=== PATIENT | female | born 1965 | race Caucasian/White ===

== ENCOUNTER → 2016-05-03 | Outpatient (CLI) | payer OTHER ==
[~2016-05-03] MED LIST: OMEP20TA7 PO
[2016-05-03 09:00] LABS: BASOPHILS % (AUTO) 1 % (0-10); EOSINOPHILS # (AUTO) 0.1 10^3/uL (0.0-0.3); EOSINOPHILS % (AUTO) 2 % (0-10); LYMPHOCYTES # (AUTO) 1.8 X 10^3 (1.0-4.0); LYMPHOCYTES % (AUTO) 44 % (12-44); MEAN CORPUSCULAR HEMOGLOBIN 30 PG (25-34); MEAN CORPUSCULAR HGB CONC 33 G/DL (32-36); MEAN CORPUSCULAR VOLUME 91 FL (80-99); MONOCYTES # (AUTO) 0.3 X 10^3 (0.0-1.0); MONOCYTES % (AUTO) 7 % (0-12); NEUTROPHILS # (AUTO) 1.9 X 10^3 (1.8-7.8); NEUTROPHILS % (AUTO) 47 % (42-75); PLATELET COUNT 249 10^3/uL (130-400); RED BLOOD COUNT 4.22 10^6/uL (4.35-5.85); RED CELL DISTRIBUTION WIDTH 12.9 % (10.0-14.5)
[2016-05-03 09:17] LABS: ALANINE AMINOTRANSFERASE 19 U/L (0-55); ALBUMIN 4.3 G/DL (3.2-4.5); ANION GAP 8 MMOL/L (5-14); ASPARTATE AMINO TRANSFERASE 20 U/L (5-34); BILIRUBIN,TOTAL 0.6 MG/DL (0.1-1.0); BLOOD UREA NITROGEN 10 MG/DL (7-18); BUN/CREATININE RATIO 13; CALCIUM 9.8 MG/DL (8.5-10.1); CARBON DIOXIDE 24 MMOL/L (21-32); CHLORIDE 110 MMOL/L (98-107); CHOLESTEROL 202 MG/DL (< 200); DIRECT LDL 119 MG/DL (1-129); GFR ESTIMATED > 60; GLUCOSE 93 MG/DL (70-105); POTASSIUM 4.2 MMOL/L (3.6-5.0); SODIUM 142 MMOL/L (135-145); TOTAL PROTEIN 7.1 G/DL (6.4-8.2); TRIGLYCERIDES 48 MG/DL (<150); VLDL CHOLESTEROL 10 MG/DL (5-40)
== END ==
LOC: LAB 08:30
PROVIDERS: ATTEND Obstetrics & Gynecology
DX: Z00.00 Encounter for general adult medical examination without abnormal findings (principal); Z13.220 Encounter for screening for lipoid disorders; Z13.1 Encounter for screening for diabetes mellitus
CPT/HCPCS: 36415; 80053; 80061; 83036; 84443; 85025

== ENCOUNTER → 2016-05-14 | Outpatient (CLI) | payer OTHER ==
--- NOTE | 2016-05-14 20:55 | Diagnostic Imaging Report ---
Bilateral diagnostic mammogram. INDICATION: Right breast pain. The current study was also evaluated with a Computer Aided Detection (CAD) system. Comparison exam from 08/02/14 is reviewed. FINDINGS: The breasts are composed of scattered fibroglandular densities slightly more dense in the central aspect bilaterally. There is overall left breast density compared to prior exam. No suspicious mass or calcification seen. Occasional punctate calcifications noted. IMPRESSION: No mammographic evidence of malignancy. Ultrasound evaluation pending. ACR BI-RADS Category 0: Incomplete. (Needs additional imaging evaluation). Dictated by: Dictated on workstation # [id number]
--- NOTE | 2016-05-14 21:49 | Diagnostic Imaging Report ---
EXAM: Right breast ultrasound. INDICATION: Right breast pain in the upper outer region. TECHNIQUE: All four quadrants and the retroareolar region were examined on this study. FINDINGS: Unremarkable breast parenchyma is seen with no focal lesion. IMPRESSION: Negative study. Clinical followup of the area of pain is recommended. Bi-RADS category 1. ACR BI-RADS Category 1: Negative. Result letter will be mailed to the patient. Note: At least 10% of breast cancer is not imaged by mammography. Dictated by: Dictated on workstation # [id number]
== END ==
LOC: EDUNIT# 04-30 16:06 → RAD 07:24
PROVIDERS: ATTEND Obstetrics & Gynecology
DX: N64.89 Other specified disorders of breast (principal)
CPT/HCPCS: 76641; 77066

== ENCOUNTER 2016-07-04 05:38 | Outpatient (CLI) | payer OTHER ==
[~2016-07-04] VITALS: Ht 168.9 cm; Wt 74.8 kg
[2016-07-04] MEDS ORDERED: OMEP20TA7 PO (15:08)
== END 2016-07-04 15:13 ==
LOC: PREOP 05:38
PROVIDERS: ATTEND Surgery
DX: Z01.818 Encounter for other preprocedural examination (principal); Z12.11 Encounter for screening for malignant neoplasm of colon; R13.10 Dysphagia, unspecified

== ENCOUNTER 2016-07-09 07:49 | Day surgery (SDC) | payer OTHER ==
[~2016-07-09] VITALS: Ht 168.9 cm; Wt 74.8 kg
[2016-07-09] MEDS ORDERED: NS IV 1000 ML 1,000 ML IV STA (08:08)
[2016-07-09 08:30] VITALS: BP 127/82
[2016-07-09] MEDS ORDERED: HURRICAINE EXT TUBE (BENZOCAINE) ONE (08:37)
[2016-07-09] MEDS ORDERED: MIDAZOLAM 2 MG/2 ML (VERSED) VIAL ONE (08:48)
[2016-07-09] MEDS ORDERED: proPOfol 200 MG/20 ML (DIPRIVAN) VIAL IV ONE (08:48)
--- NOTE | 2016-07-09 08:51 | Progress Note-Pre Operative ---
Pre-Operative Progress Note H&P Reviewed The H&P was reviewed, patient examined and no changes noted. Date H&P Reviewed: Jul 09, 2016 Time H&P Reviewed: 08:50 Pre-Operative Diagnosis: dysphagia, gerd, screening colonoscopy KEYSHAWN LINDER DO Jul 09, 2016 8:50 am
[2016-07-09] MEDS ORDERED: HURRICAINE EXT TUBE (BENZOCAINE) XX ONE (09:30)
--- NOTE | 2016-07-09 09:31 | Progress Note-Post Operative ---
Post-Operative Progess Note Surgeon (s)/Television Production Technician (s) Surgeon KEYSHAWN LINDER DO Television Production Technician: none Pre-Operative Diagnosis dysphagia, gerd, screening colonoscopy, family history colon cancer Post-Operative Diagnosis hiatal hernia, normal colon Post-Op Procedure Note Date of Procedure: Jul 09, 2016 Name of Procedure Performed: egd and colonoscopy Description of the Procedure: egd and colonoscopy Findings of the Procedure hiatal hernia normal colon Anesthesia Type per mda Estimated blood loss (mL): none Specimen(s) collected/removed none KEYSHAWN LINDER DO Jul 09, 2016 9:31 am
[2016-07-09 09:40] VITALS: BP 114/87
--- NOTE | 2016-07-09 09:41 | Discharge Inst-Simple/Standard ---
Discharge Inst-Standard Patient Instructions/Follow Up Plan of Care/Instructions/FU: F/u on as needed basis. Repeat colonoscopy 5 years unless problem before than and then be re-evaluated at that time. Activity as Tolerated: Yes Discharge Diet: Regular Diet KEYSHAWN LINDER DO Jul 09, 2016 9:41 am
[2016-07-09 09:49] VITALS: BP 127/82
[2016-07-09 10:00] VITALS: BP 125/83
[2016-07-09 10:05] VITALS: BP 125/83
--- NOTE | 2016-07-09 10:46 | OPERATIVE REPORT ---
DATE OF SERVICE: 07/09/2016 PREOPERATIVE DIAGNOSIS: Dysphagia, gastroesophageal reflux disease, screening colonoscopy, family history of colon cancer. POSTOPERATIVE DIAGNOSIS: Hiatal hernia, normal colon. PROCEDURE: Esophagogastroduodenoscopy and colonoscopy. SURGEON: KEYSHAWN LINDER DO ANESTHESIA: Per MDA. ESTIMATED BLOOD LOSS: None. COMPLICATIONS: None. INDICATION: The patient is a 51-year-old female with some dysphagia at times. She has reflux. She has family history of colon cancer. She also understands risks and benefits of procedure and wished to proceed with the procedure. Consent was signed in the chart. PROCEDURE: The patient was taken to the endoscopy suite and placed in left lateral recumbent position. Timeout was performed. Scope was inserted into the mouth, down the esophagus, stomach and into the duodenum without difficulty. There were no polyps, masses or ulcerations within the duodenum. The scope was then slowly retracted back into the stomach where it was further insufflated. There were no erythematous changes. A small polyp benign in appearance was present. There were no masses or ulcerations. Scope was retroflexed noting a small to moderate sized hiatal hernia. No other pathology noted. The scope was returned to its normal position, slowly withdrawn back into esophagus which had no erythematous changes. No polyps, masses or ulcerations. Widely patent. Scope was then continuously retracted back until completely removed. Digital rectal exam was then performed. There were no palpable polyps, masses or ulcerations. Scope was then inserted into the rectum and advanced all the way to the cecum with minimal difficulty. Prep was adequate. Scope was then slowly retracted back. There were no polyps, masses or ulcerations in the cecum, ascending, transverse, descending and sigmoid colon. Once in the rectum, scope was also retroflexed noting no other pathology. Scope was returned to its normal position and slowly withdrawn until completely removed. The patient tolerated the procedure well without any complications. She was taken to the recovery room in stable condition. RECOMMENDATIONS: The patient will continue on current medications for her reflux with omeprazole. She will need a repeat colonoscopy in 5 years due to family history of colon cancer. If she has any problems prior to that, she should be reevaluated at that time. Job ID: [id number] DocumentID: [id number] Dictated Date: 07/09/2016 09:33:40 Glass Blower Helper Date: 07/09/2016 10:45:20 Dictated By: KEYSHAWN LINDER DO
== END 2016-07-09 10:10 | disposition home or self-care (01) ==
LOC: ENDO 07:49
PROVIDERS: ATTEND Surgery
DX: Z12.11 Encounter for screening for malignant neoplasm of colon (principal); Z80.0 Family history of malignant neoplasm of digestive organs; K21.9 Gastro-esophageal reflux disease without esophagitis; K44.9 Diaphragmatic hernia without obstruction or gangrene; K31.7 Polyp of stomach and duodenum

== ENCOUNTER → 2017-10-17 | Outpatient (CLI) | payer OTHER ==
[2017-10-17 10:08] LABS: BASOPHILS % (AUTO) 1 % (0-10); EOSINOPHILS # (AUTO) 0.1 10^3/uL (0.0-0.3); EOSINOPHILS % (AUTO) 2 % (0-10); HEMATOCRIT 38 % (35-52); HEMOGLOBIN 12.8 G/DL (11.5-16.0); LYMPHOCYTES # (AUTO) 1.7 X 10^3 (1.0-4.0); LYMPHOCYTES % (AUTO) 45 % (12-44); MEAN CORPUSCULAR HEMOGLOBIN 31 PG (25-34); MEAN CORPUSCULAR HGB CONC 34 G/DL (32-36); MEAN CORPUSCULAR VOLUME 92 FL (80-99); MEAN PLATELET VOLUME 9.8 FL (7.4-10.4); MONOCYTES # (AUTO) 0.3 X 10^3 (0.0-1.0); MONOCYTES % (AUTO) 8 % (0-12); NEUTROPHILS # (AUTO) 1.7 X 10^3 (1.8-7.8); NEUTROPHILS % (AUTO) 45 % (42-75); PLATELET COUNT 242 10^3/uL (130-400); RED CELL DISTRIBUTION WIDTH 12.1 % (10.0-14.5); WHITE BLOOD COUNT 3.7 10^3/uL (4.3-11.0)
[2017-10-17 10:29] LABS: ALANINE AMINOTRANSFERASE 25 U/L (0-55); ALBUMIN 4.4 GM/DL (3.2-4.5); ALKALINE PHOSPHATASE 70 U/L (40-136); BILIRUBIN,TOTAL 0.6 MG/DL (0.1-1.0); BUN/CREATININE RATIO 14; CARBON DIOXIDE 24 MMOL/L (21-32); CHLORIDE 110 MMOL/L (98-107); CHOLESTEROL 199 MG/DL (< 200); CREATININE SERUM 0.79 MG/DL (0.60-1.30); GFR ESTIMATED > 60; GLUCOSE 96 MG/DL (70-105); HDL CHOLESTEROL 61 MG/DL (40-60); SODIUM 141 MMOL/L (135-145); TOTAL PROTEIN 7.2 GM/DL (6.4-8.2); TRIGLYCERIDES 44 MG/DL (<150); VLDL CHOLESTEROL 9 MG/DL (5-40)
--- NOTE | 2017-10-17 11:03 | Diagnostic Imaging Report ---
Indication: Routine screening. Comparison is made with prior mammogram from 05/14/2016 and 08/02/2014. 2-D and 3-D bilateral screening mammography was performed with CAD. Scattered fibroglandular densities are identified bilaterally. There is a small nodular density in the medial aspect of the right breast at posterior depth only seen on the CC view. No definite correlate on the MLO view is identified. This may be slightly inferior based on the tomographic views. Left breast is unremarkable. No suspicious calcifications are seen. The axillae are unremarkable. Impression: BI-RADS 0 Right breast density. Additional views including spot compression and rolled CC views are recommended for further evaluation. ACR BI-RADS Category 0: Incomplete. (Needs additional imaging evaluation). Result letter will be mailed to the patient. Note: At least 10% of breast cancer is not imaged by mammography. Dictated by: Dictated on workstation # [id number]
== END ==
LOC: RAD 09:43
PROVIDERS: ATTEND Obstetrics & Gynecology
DX: Z12.31 Encounter for screening mammogram for malignant neoplasm of breast (principal)
CPT/HCPCS: 36415; 77067; 80053; 80061; 83036; 84443; 85025

== ENCOUNTER → 2017-10-22 | Outpatient (CLI) | payer OTHER ==
--- NOTE | 2017-10-22 13:58 | Diagnostic Imaging Report ---
Indication: Right breast density. Patient presents for additional views. Correlation is made with recent screening study from 10/17/2017. Unilateral right 2-D and 3-D diagnostic mammography was performed. There is a residual density in the medial right breast posterior depth approximately 8 cm from the nipple. This has circumscribed margins, may represent a small cyst or lymph node. No other suspicious abnormality is seen. Impression: Right breast density medial aspect at posterior depth with circumscribed margins. Further evaluation with ultrasound is recommended. BI-RADS zero ACR BI-RADS Category 0: Incomplete. (Needs additional imaging evaluation). Result letter will be mailed to the patient. Note: At least 10% of breast cancer is not imaged by mammography. Dictated by: Dictated on workstation # [id number]
--- NOTE | 2017-10-22 14:10 | Diagnostic Imaging Report ---
INDICATION: Right breast density. Correlation is made with diagnostic mammogram earlier the same day. Sonographic interrogation of the right breast from 12-6 o'clock location was performed. No sonographic abnormality is seen. No solid or cystic mass is seen. IMPRESSION: No sonographic abnormality is seen to account for the small density noted in the medial right breast. This does have fairly benign features mammographically, followup right mammogram in 6 months is recommended to confirm stability. BI-RADS category 3 ACR BI-RADS Category 3: Probably benign findings. Dictated by: Dictated on workstation # [id number]
--- NOTE | 2017-10-22 14:38 | Diagnostic Imaging Report ---
PROCEDURE: US Non-ob pelvis comp/trans. TECHNIQUE: Multiple realtime grayscale images were obtained of the pelvis in various projections endovaginally. Transabdominal imaging was also performed. INDICATION: Right ovarian enlargement. FINDINGS: The uterus measures 5.4 x 3.2 x 2.7 cm. The endometrium is thin at 2 mm. No myometrial mass is identified. The right ovary measures 1.5 x 1.6 x 1.4 cm and the left ovary measures 1.8 x 1.8 x 1.0 cm. There is blood flow to both ovaries. No adnexal mass or free fluid is seen. IMPRESSION: Unremarkable transabdominal and transvaginal pelvic ultrasound. Dictated by: Dictated on workstation # [id number]
== END ==
LOC: RAD 13:00
PROVIDERS: ATTEND Obstetrics & Gynecology
DX: R92.2 Inconclusive mammogram (principal); N83.8 Other noninflammatory disorders of ovary, fallopian tube and broad ligament
CPT/HCPCS: 76830; 76856

== ENCOUNTER → 2018-07-23 | Outpatient (CLI) | payer OTHER ==
--- NOTE | 2018-07-23 21:21 | Diagnostic Imaging Report ---
INDICATION: Right breast density. Patient presents for six-month followup. COMPARISON: Correlation made with prior mammograms from 10/17/2017 and 05/14/2016. EXAMINATION: Unilateral right 2D and 3D diagnostic mammography was performed. This includes CC, MLO and mediolateral views. Rolled CC views were also performed. FINDINGS: Density noted in the medial aspect of the right breast is again noted, posterior depth. This appears to be fairly well circumscribed. However, there is a second density just medial to this in the posterior right breast on the CC view which appears to be more irregular. These may be superiorly located on the MLO and ML views. No suspicious calcifications are seen. IMPRESSION: Circumscribed density in the medial posterior right breast appears stable. There is a new slightly irregular density in the medial posterior right breast, best seen on the CC view but likely superiorly located on the MLO and ML view. This persisted on the rolled CC views. Further evaluation of this area with ultrasound is recommended and will be performed today. ACR BI-RADS Category 0: Incomplete. (Needs additional imaging evaluation). Result letter will be mailed to the patient. Note: At least 10% of breast cancer is not imaged by mammography. Dictated by: Dictated on workstation # [id number]
--- NOTE | 2018-07-23 21:28 | Diagnostic Imaging Report ---
INDICATION: Right breast density. Study is performed for further evaluation. Correlation is made with diagnostic study earlier same day. FINDINGS: Sonographic interrogation of inner right breast was performed from approximately 12 to 4 o'clock location. No sonographic abnormality is seen. No solid or cystic mass is detected. No finding is identified to account for the densities noted in the medial right breast mammographically. IMPRESSION: No sonographic abnormality is seen. However, there is a slightly irregular density in the medial posterior aspect of the right breast, new since prior mammograms which persisted with additional mammographic images. This is indeterminate. Further evaluation with MRI of the breasts is recommended for further characterization. ACR BI-RADS Category 0: Incomplete. (Needs additional imaging evaluation). Dictated by: Dictated on workstation # [id number]
== END ==
LOC: RAD 07:47
PROVIDERS: ATTEND Obstetrics & Gynecology
DX: R92.2 Inconclusive mammogram (principal)